=== PATIENT | female | born 1985 | race Caucasian/White ===

== ENCOUNTER 2016-10-13 09:01 | Emergency (ER) | payer OTHER ==
[~2016-10-13] VITALS: Ht 177.8 cm; Wt 76.1 kg
[2016-10-13 09:06] VITALS: TEMP 36.7; Ht 177.8 cm; Wt 76.1 kg
--- NOTE | 2016-10-13 09:40 | EMERGENCY ROOM VISIT NOTE ---
ED Visit Note First contact with patient: 09:09 CHIEF COMPLAINT: Left third finger pain HISTORY OF PRESENT ILLNESS: This 31-year-old female presents the ER with chief complaint of pain in her left third finger which radiates into her hand. The patient states that sometimes it is difficult straightening her finger. The patient denies any trauma to the finger. The patient is right-hand dominant. 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 REVIEW OF SYSTEMS: 6 system review was performed and was negative unless stated otherwise in history of present illness. PMH: The patient is healthy; asthma SOCIAL HISTORY: Patient lives with her . The patient denies any tobacco or alcohol use. PHYSICAL EXAM: Vital Signs: Were reviewed Reviewed Nurse's notes. GENERAL: 31- year-old female appears in no acute distress. MENTAL Status: Alert and oriented 3. LEFT THIRD FINGER/HAND:: There is no deformity of the finger. The patient is able to flex and extend her finger . The pain patient is tender to palpation over the metacarpal region on the palmar aspect. No erythema or edema noted. EMERGENCY DEPARTMENT COURSE: The patient was evaluated. The patient's EMR medication list were reviewed. I discussed with the patient that I felt that this was most likely early trigger finger. She will be placed on an anti- inflammatory. She currently is not working therefore she can easily refrained from repetitive use. DIAGNOSIS: Left third trigger finger DISCHARGE INSTRUCTIONS: Take diclofenac as prescribed. If symptoms are not improving in 1-2 weeks recommend follow-up with Dr. Schuler. Current/Historical Medications Miscellaneous Medications None (Patient States No Home Meds) Allergies Coded Allergies: Quinolones (Unverified Allergy, Mild, 04/27/09) Vital Signs Date Time Temp Pulse Resp B/P (MAP) Pulse Ox O2 Delivery O2 Flow Rate FiO2 10/13/16 09:06 36.7 51 18 126/73 99 Room Air Departure Information Referrals Sb Garcia M.D. (PCP) Patient Instructions My [facility]
[2016-10-13] MEDS ORDERED: DICL75TA2 PO (09:42)
[2016-10-13 09:48] VITALS: BP 131/78; PULSE 55; O2SAT 100
== END 2016-10-13 09:49 | disposition home or self-care (01) ==
LOC: C.EDB 09:02
DX: M65.332 Trigger finger, left middle finger (principal); J45.909 Unspecified asthma, uncomplicated